=== PATIENT | male | born 1965 | race Caucasian/White ===

== ENCOUNTER 2019-05-09 05:43 | Inpatient (IN) | payer OTHER ==
[2019-05-09] MEDS ORDERED: ROCURONIUM 50 MG INJ ×2 (07:00→07:03)
[2019-05-09] MEDS ORDERED: EPHEDrine 25 MG/5 ML SYG (07:00)
[2019-05-09] MEDS ORDERED: NEOSTIGMINE 3 MG/3 ML SYRINGE ×2 (07:03→09:33)
[2019-05-09] MEDS ORDERED: PROPOFOL 20 ML (07:03)
[2019-05-09] MEDS ORDERED: GLYCOPYRROLATE 0.4 MG INJ ×3 (07:03→09:33)
[2019-05-09] MEDS ORDERED: LIDOCAINE 2% (SDV) 5 ML INJ (07:03)
[2019-05-09] MEDS ORDERED: SUCCINYLCHOLINE CHLORIDE 100 MG/5 ML SYG IV (07:03)
[2019-05-09] MEDS ORDERED: CEFAZOLIN 1 GM INJ ×2 (07:59→11:43)
[2019-05-09] MEDS ORDERED: ONDANSETRON 4 MG INJ ×2 (09:33→14:34)
[2019-05-09] MEDS ORDERED: EPHEDrine 25 MG/5 ML SYG IV (10:00)
[2019-05-09] MEDS ORDERED: FENTAnyl 50 MCG/ML VIAL IV ×2 (10:00)
[2019-05-09] MEDS ORDERED: HYDROmorphONE 1 MG/5 ML IV SYRINGE IV ×3 (10:00)
[2019-05-09] MEDS ORDERED: MIDAZOLAM 1 MG/ML 2 ML INJ IV (10:00)
[2019-05-09] MEDS ORDERED: hydrALAzine 20 MG INJ IV (10:00)
[2019-05-09] MEDS ORDERED: LABETALOL HCL 20MG INJ IV (10:00)
[2019-05-09] MEDS ORDERED: MEPERIDINE 25 MG INJ IV (10:00)
[2019-05-09] MEDS ORDERED: DIPHENHYDRAMINE 50 MG INJ IV (10:00)
[2019-05-09] MEDS ORDERED: METOCLOPRAMIDE 10 MG INJ IV (10:00)
[2019-05-09] MEDS ORDERED: FENTAnyl 50 MCG/ML VIAL ×2 (10:27→14:34)
[2019-05-09] MEDS ORDERED: ROPIVACAINE 0.5 % 30 ML VIAL (10:57)
[2019-05-09] MEDS ORDERED: POLYMYXIN/BACITRACIN 1L IRRIG (10:57)
[2019-05-09] MEDS: ROPIVACAINE 0.5 % 30 ML VIAL (10:59)
[2019-05-09] MEDS: POVIDONE IODINE 10% 28.4 GM OINT (10:59)
[2019-05-09] MEDS ORDERED: NALOXONE (0.4 MG/ML) INJ (12:39)
[2019-05-09] MEDS ORDERED: DEXTROSE 50% 50 ML SYRINGE IV ×2 (14:30)
[2019-05-09] MEDS ORDERED: GLUCOSE GEL 15 GRAM TUBE PO ×2 (14:30)
[2019-05-09] MEDS ORDERED: GLUCAGON 1 MG INJ IM (14:30)
[2019-05-09] MEDS ORDERED: GLUCOSE GEL 15 GRAM TUBE BUCCAL (14:30)
[2019-05-09] MEDS: ONDANSETRON 4 MG INJ IV (14:41)
[2019-05-09] MEDS: FENTAnyl 50 MCG/ML VIAL IV ×2 (14:41→15:48)
[2019-05-09] MEDS ORDERED: HYDROmorphONE 0.2 MG/ML PCA (15:11)
[2019-05-09] MEDS: HYDROmorphONE 0.2 MG/ML PCA IV (15:22)
[2019-05-09] MEDS: SOD CHLORIDE 0.45% 1,000 ML IV (16:18)
[2019-05-09] MEDS ORDERED: HYDROCODONE/APAP (5/325) TAB PO (16:30)
[2019-05-09] MEDS: LACTATED RINGER'S 1,000 ML IV (16:30)
[2019-05-09] MEDS: HYDROmorphONE 0.5 MG/0.5 ML SYG IV ×2 (17:46→20:47)
[2019-05-09] MEDS: INSULIN ASPART [NOVOLOG] 3 ML PEN SC ×2 (17:55→21:00)
[2019-05-09] MEDS ORDERED: DIAZEPAM 5 MG TAB PO (18:30)
[2019-05-09] MEDS: OXYCODONE/ACETAMINOPHEN (5/325) TAB PO ×2 (19:44→23:19)
[2019-05-09] MEDS: METOPROLOL 50 MG TAB PO (19:45)
[2019-05-10] MEDS: HYDROmorphONE 0.2 MG/ML PCA IV ×2 (00:06→13:21)
[2019-05-10] MEDS: SOD CHLORIDE 0.45% 1,000 ML IV ×3 (02:05→13:25)
[2019-05-10] MEDS: HYDROmorphONE 0.5 MG/0.5 ML SYG IV ×2 (02:05→05:00)
[2019-05-10] MEDS: OXYCODONE/ACETAMINOPHEN (5/325) TAB PO ×5 (03:15→21:07)
[2019-05-10 05:05] LABS: ADD MAN DIFF? NO
[2019-05-10 05:07] LABS: BASOPHILS % 0.4 % (0.0-2.0); EOSINOPHILS # 0.1 10^3/ul (0.0-0.5); EOSINOPHILS % 1.1 % (0.0-7.0); HEMATOCRIT 45.2 % (42.0-52.0); HEMOGLOBIN 14.5 g/dl (14.0-18.0); LYMPHOCYTES # 1.4 10^3/ul (0.8-2.9); LYMPHOCYTES % 17.1 % (15.0-51.0); MEAN CORPUSCULAR HEMOGLOBIN 29.2 pg (29.0-33.0); MEAN CORPUSCULAR HGB CONC 32.1 g/dl (32.0-37.0); MEAN CORPUSCULAR VOLUME 91.1 fl (82.0-101.0); MEAN PLATELET VOLUME 11.2 fl (7.4-10.4); MONOCYTE # 0.9 10^3/ul (0.3-0.9); MONOCYTES % 10.7 % (0.0-11.0); NEUTROPHIL # 5.6 10^3/ul (1.6-7.5); NEUTROPHILS % 70.1 % (39.0-77.0); PLATELET COUNT 148 10^3/UL (140-415); RED BLOOD COUNT 4.96 10^6/ul (4.70-6.10); RED CELL DISTRIBUTION WIDTH 12.8 % (11.5-14.5)
[2019-05-10 05:48] LABS: ALANINE AMINOTRANSFERASE 33 IU/L (13-69); ALBUMIN 3.6 g/dl (3.3-4.9); ALBUMIN/GLOBULIN RATIO 1.33; ALKALINE PHOSPHATASE 26 IU/L (42-121); ANION GAP 5 (5-13); ASPARTATE AMINO TRANSFERASE 33 IU/L (15-46); BILIRUBIN,INDIRECT 0.8 mg/dl (0-1.1); BILIRUBIN,TOTAL 0.8 mg/dl (0.2-1.3); BLOOD UREA NITROGEN 19 mg/dl (7-20); CALCIUM 8.4 mg/dl (8.4-10.2); CARBON DIOXIDE 34 mmol/L (21-31); CHLORIDE 97 mmol/L (97-110); CREATININE 1.35 mg/dl (0.61-1.24); Estimated GFR 55 mL/min (>60); GLUCOSE 105 mg/dl (70-220); POTASSIUM 4.2 mmol/L (3.5-5.1); SODIUM 136 mmol/L (135-144); TOTAL PROTEIN 6.3 g/dl (6.1-8.1)
[2019-05-10] MEDS: LACTATED RINGER'S 1,000 ML IV (07:00)
[2019-05-10] MEDS: INSULIN ASPART [NOVOLOG] 3 ML PEN SC ×4 (07:50→21:00)
[2019-05-10] MEDS: AMLODIPINE 10 MG TAB PO (08:25)
[2019-05-10] MEDS: LOSARTAN 50 MG TAB PO (08:25)
[2019-05-10] MEDS: METOPROLOL 50 MG TAB PO ×2 (08:26→21:08)
[2019-05-10] MEDS: DABIGATRAN 150 MG CAP PO ×2 (09:45→21:07)
[2019-05-10] MEDS: DIGOXIN 0.125 MG TAB PO (13:24)
[2019-05-11] MEDS: OXYCODONE/ACETAMINOPHEN (5/325) TAB PO (05:08)
[2019-05-11 05:27] LABS: ADD MAN DIFF? NO
[2019-05-11 05:40] LABS: BASOPHILS % 0.3 % (0.0-2.0); EOSINOPHILS # 0.2 10^3/ul (0.0-0.5); EOSINOPHILS % 2.2 % (0.0-7.0); HEMATOCRIT 44.2 % (42.0-52.0); HEMOGLOBIN 14.3 g/dl (14.0-18.0); LYMPHOCYTES # 1.3 10^3/ul (0.8-2.9); LYMPHOCYTES % 17.9 % (15.0-51.0); MEAN CORPUSCULAR HEMOGLOBIN 29.2 pg (29.0-33.0); MEAN CORPUSCULAR HGB CONC 32.4 g/dl (32.0-37.0); MEAN CORPUSCULAR VOLUME 90.2 fl (82.0-101.0); MEAN PLATELET VOLUME 11.3 fl (7.4-10.4); MONOCYTE # 0.7 10^3/ul (0.3-0.9); MONOCYTES % 9.7 % (0.0-11.0); NEUTROPHILS % 69.3 % (39.0-77.0); PLATELET COUNT 139 10^3/UL (140-415); POSITIVE DIFF @See below; RED CELL DISTRIBUTION WIDTH 12.7 % (11.5-14.5)
[2019-05-11 05:40] LABS: WHITE BLOOD COUNT 7.2 10^3/ul (4.8-10.8)
[2019-05-11] MEDS: HYDROmorphONE 0.2 MG/ML PCA IV ×2 (05:52→20:21)
[2019-05-11 06:30] LABS: ALANINE AMINOTRANSFERASE 41 IU/L (13-69); ALBUMIN 3.3 g/dl (3.3-4.9); ALBUMIN/GLOBULIN RATIO 1.17; ALKALINE PHOSPHATASE 27 IU/L (42-121); ANION GAP 6 (5-13); ASPARTATE AMINO TRANSFERASE 39 IU/L (15-46); BILIRUBIN,INDIRECT 0.6 mg/dl (0-1.1); BILIRUBIN,TOTAL 0.6 mg/dl (0.2-1.3); BLOOD UREA NITROGEN 17 mg/dl (7-20); CALCIUM 7.9 mg/dl (8.4-10.2); CARBON DIOXIDE 33 mmol/L (21-31); CHLORIDE 96 mmol/L (97-110); CREATININE 1.24 mg/dl (0.61-1.24); Estimated GFR > 60 mL/min (>60); GLUCOSE 98 mg/dl (70-220); SODIUM 135 mmol/L (135-144); TOTAL PROTEIN 6.1 g/dl (6.1-8.1)
[2019-05-11] MEDS ORDERED: RIVAROXABAN 15 MG TABLET PO ×2 (06:30)
[2019-05-11] MEDS: LACTATED RINGER'S 1,000 ML IV (06:52)
[2019-05-11] MEDS: INSULIN ASPART [NOVOLOG] 3 ML PEN SC ×4 (07:50→20:55)
[2019-05-11] MEDS: SOD CHLORIDE 0.45% 1,000 ML IV (08:20)
[2019-05-11] MEDS: DABIGATRAN 150 MG CAP PO ×2 (08:20→20:51)
[2019-05-11] MEDS: METOPROLOL 50 MG TAB PO ×2 (08:21→20:51)
[2019-05-11] MEDS: LOSARTAN 50 MG TAB PO (08:21)
[2019-05-11] MEDS: AMLODIPINE 10 MG TAB PO (08:22)
[2019-05-11] MEDS: CEFAZOLIN 2 GM/50 ML (PMX) 50 ML IVPB ×3 (09:32→22:54)
[2019-05-11] MEDS: DIGOXIN 0.125 MG TAB PO (12:33)
[2019-05-11] MEDS ORDERED: RIVAROXABAN 10 MG TABLET PO (17:55)
[2019-05-12] MEDS: SOD CHLORIDE 0.45% 1,000 ML IV (05:50)
[2019-05-12] MEDS: INSULIN ASPART [NOVOLOG] 3 ML PEN SC ×4 (07:50→20:46)
[2019-05-12] MEDS: AMLODIPINE 10 MG TAB PO (08:45)
[2019-05-12] MEDS: DABIGATRAN 150 MG CAP PO ×2 (08:46→20:01)
[2019-05-12] MEDS: METOPROLOL 50 MG TAB PO ×2 (08:46→20:01)
[2019-05-12] MEDS: LOSARTAN 50 MG TAB PO (08:46)
[2019-05-12] MEDS: OXYCODONE/ACETAMINOPHEN (5/325) TAB PO ×2 (08:47→20:02)
[2019-05-12] MEDS: DIGOXIN 0.125 MG TAB PO (12:47)
[2019-05-12] MEDS ORDERED: BISACODYL 10 MG SUPP PR (16:30)
[2019-05-12] MEDS ORDERED: RIVAROXABAN 10 MG TABLET PO (17:55)
[2019-05-12] MEDS: SENNA TAB PO (20:46)
[2019-05-13] MEDS: OXYCODONE/ACETAMINOPHEN (5/325) TAB PO ×2 (05:31→17:34)
[2019-05-13] MEDS: INSULIN ASPART [NOVOLOG] 3 ML PEN SC ×4 (07:50→20:25)
[2019-05-13] MEDS: DABIGATRAN 150 MG CAP PO ×2 (08:28→20:09)
[2019-05-13] MEDS: METOPROLOL 50 MG TAB PO ×2 (08:29→20:09)
[2019-05-13] MEDS: LOSARTAN 50 MG TAB PO (08:29)
[2019-05-13] MEDS: SENNA TAB PO ×2 (08:29→20:12)
[2019-05-13] MEDS: AMLODIPINE 10 MG TAB PO (08:29)
[2019-05-13] MEDS: DIGOXIN 0.125 MG TAB PO (14:31)
[2019-05-13] MEDS: MAGNESIUM HYDROXIDE 30ML CUP PO (15:18)
[2019-05-13] MEDS: POLYETHYLENE GLYCOL 17 GM PACKET PO (16:29)
[2019-05-14] MEDS: INSULIN ASPART [NOVOLOG] 3 ML PEN SC ×4 (07:50→21:00)
[2019-05-14] MEDS: SENNA TAB PO ×2 (08:40→21:15)
[2019-05-14] MEDS: METOPROLOL 50 MG TAB PO ×2 (08:40→21:15)
[2019-05-14] MEDS: LOSARTAN 50 MG TAB PO (08:41)
[2019-05-14] MEDS: DABIGATRAN 150 MG CAP PO ×2 (08:41→21:15)
[2019-05-14] MEDS: FUROSEMIDE 40 MG TAB PO ×2 (08:41→16:16)
[2019-05-14] MEDS: AMLODIPINE 10 MG TAB PO (08:41)
[2019-05-14 10:29] LABS: ADD MAN DIFF? NO
[2019-05-14 10:37] LABS: WHITE BLOOD COUNT 6.6 10^3/ul (4.8-10.8)
[2019-05-14 10:37] LABS: BASOPHILS % 0.5 % (0.0-2.0); EOSINOPHILS # 0.2 10^3/ul (0.0-0.5); EOSINOPHILS % 3.2 % (0.0-7.0); HEMATOCRIT 49.2 % (42.0-52.0); HEMOGLOBIN 15.9 g/dl (14.0-18.0); LYMPHOCYTES # 0.8 10^3/ul (0.8-2.9); LYMPHOCYTES % 12.6 % (15.0-51.0); MEAN CORPUSCULAR HEMOGLOBIN 28.9 pg (29.0-33.0); MEAN CORPUSCULAR HGB CONC 32.3 g/dl (32.0-37.0); MEAN CORPUSCULAR VOLUME 89.3 fl (82.0-101.0); MEAN PLATELET VOLUME 10.7 fl (7.4-10.4); MONOCYTE # 0.5 10^3/ul (0.3-0.9); MONOCYTES % 7.6 % (0.0-11.0); NEUTROPHILS % 75.6 % (39.0-77.0); PLATELET COUNT 192 10^3/UL (140-415); RED BLOOD COUNT 5.51 10^6/ul (4.70-6.10); RED CELL DISTRIBUTION WIDTH 12.3 % (11.5-14.5)
[2019-05-14 10:56] LABS: ALANINE AMINOTRANSFERASE 62 IU/L (13-69); ALBUMIN 3.7 g/dl (3.3-4.9); ALBUMIN/GLOBULIN RATIO 1.23; ALKALINE PHOSPHATASE 50 IU/L (42-121); ANION GAP 10 (5-13); ASPARTATE AMINO TRANSFERASE 50 IU/L (15-46); BILIRUBIN,INDIRECT 0.7 mg/dl (0-1.1); BILIRUBIN,TOTAL 0.7 mg/dl (0.2-1.3); BLOOD UREA NITROGEN 18 mg/dl (7-20); CALCIUM 9.1 mg/dl (8.4-10.2); CARBON DIOXIDE 27 mmol/L (21-31); CHLORIDE 102 mmol/L (97-110); CREATININE 1.05 mg/dl (0.61-1.24); Estimated GFR > 60 mL/min (>60); GLUCOSE 161 mg/dl (70-220); MAGNESIUM 2.2 mg/dl (1.7-2.5); POTASSIUM 4.4 mmol/L (3.5-5.1); SODIUM 139 mmol/L (135-144); TOTAL PROTEIN 6.7 g/dl (6.1-8.1)
[2019-05-14 11:04] LABS: B-TYPE NATRIURETIC PEPTIDE 1000 PG/ML (0-125)
[2019-05-14 11:05] LABS: DIGOXIN < 0.4 ng/ml (1.0-2.0)
[2019-05-14] MEDS: DIGOXIN 0.125 MG TAB PO (13:49)
[2019-05-14] MEDS ORDERED: FUROSEMIDE 20 MG INJ IV (15:00)
[2019-05-14] MEDS: DIGOXIN 0.25 MG TAB PO (16:15)
[2019-05-15] MEDS: OXYCODONE/ACETAMINOPHEN (5/325) TAB PO ×2 (01:36→20:59)
[2019-05-15] MEDS: INSULIN ASPART [NOVOLOG] 3 ML PEN SC ×4 (07:50→20:26)
[2019-05-15] MEDS: SENNA TAB PO ×3 (09:00→20:22)
[2019-05-15] MEDS: DABIGATRAN 150 MG CAP PO ×2 (10:16→20:21)
[2019-05-15] MEDS: METOPROLOL 50 MG TAB PO ×2 (10:17→20:22)
[2019-05-15] MEDS: FUROSEMIDE 40 MG TAB PO ×2 (10:18→17:35)
[2019-05-15] MEDS: AMLODIPINE 10 MG TAB PO (10:18)
[2019-05-15] MEDS: LOSARTAN 50 MG TAB PO (10:18)
[2019-05-15] MEDS: DIGOXIN 0.125 MG TAB PO (12:44)
[2019-05-15 15:27] LABS: WHITE BLOOD COUNT 7.3 10^3/ul (4.8-10.8)
[2019-05-15 15:27] LABS: ADD MAN DIFF? NO; BASOPHILS % 0.6 % (0.0-2.0); EOSINOPHILS # 0.3 10^3/ul (0.0-0.5); EOSINOPHILS % 4.1 % (0.0-7.0); HEMATOCRIT 52.2 % (42.0-52.0); HEMOGLOBIN 17.3 g/dl (14.0-18.0); LYMPHOCYTES # 1.2 10^3/ul (0.8-2.9); LYMPHOCYTES % 16.3 % (15.0-51.0); MEAN CORPUSCULAR HEMOGLOBIN 28.7 pg (29.0-33.0); MEAN CORPUSCULAR HGB CONC 33.1 g/dl (32.0-37.0); MEAN CORPUSCULAR VOLUME 86.7 fl (82.0-101.0); MONOCYTE # 0.6 10^3/ul (0.3-0.9); NEUTROPHIL # 5.1 10^3/ul (1.6-7.5); NEUTROPHILS % 70.4 % (39.0-77.0); PLATELET COUNT 217 10^3/UL (140-415); RED BLOOD COUNT 6.02 10^6/ul (4.70-6.10); RED CELL DISTRIBUTION WIDTH 12.4 % (11.5-14.5)
[2019-05-15 16:00] LABS: ANION GAP 10 (5-13); BLOOD UREA NITROGEN 24 mg/dl (7-20); CALCIUM 9.2 mg/dl (8.4-10.2); CARBON DIOXIDE 29 mmol/L (21-31); CHLORIDE 100 mmol/L (97-110); CREATININE 1.14 mg/dl (0.61-1.24); Estimated GFR > 60 mL/min (>60); GLUCOSE 114 mg/dl (70-220); MAGNESIUM 2.1 mg/dl (1.7-2.5); PHOSPHORUS 4.4 mg/dl (2.5-4.9); POTASSIUM 4.1 mmol/L (3.5-5.1); SODIUM 139 mmol/L (135-144)
[2019-05-15 16:10] LABS: B-TYPE NATRIURETIC PEPTIDE 482 PG/ML (0-125)
[2019-05-16] MEDS: INSULIN ASPART [NOVOLOG] 3 ML PEN SC ×2 (07:50→11:40)
[2019-05-16] MEDS: metFORMIN 500 MG TAB NGT (08:28)
[2019-05-16] MEDS: LOSARTAN 50 MG TAB PO (08:29)
[2019-05-16] MEDS: AMLODIPINE 10 MG TAB PO (08:30)
[2019-05-16] MEDS: METOPROLOL 50 MG TAB PO (08:31)
[2019-05-16] MEDS: DABIGATRAN 150 MG CAP PO (08:31)
[2019-05-16] MEDS: FUROSEMIDE 40 MG TAB PO (08:31)
[2019-05-16] MEDS: OXYCODONE/ACETAMINOPHEN (5/325) TAB PO ×2 (08:32→11:31)
[2019-05-16] MEDS: SENNA TAB PO (08:32)
[2019-05-16] MEDS: DIGOXIN 0.125 MG TAB PO (12:27)
== END 2019-05-16 13:03 | DRG 501 ==
LOC: SDS 05:43 → MS1 15:46 → SDS 14:01 → MS1 14:01
PROVIDERS: Orthopaedic Surgery
PROC: 0KXV0ZZ Transfer Right Foot Muscle, Open Approach (ICD-10-PCS; principal; 2019-05-09 07:00)
PROC: 0QSL04Z Reposition Right Tarsal with Internal Fixation Device, Open Approach (ICD-10-PCS; 2019-05-09 07:00)
PROC: 0MQS0ZZ Repair Right Foot Bursa and Ligament, Open Approach (ICD-10-PCS; 2019-05-09 07:00)
DX: S96.811A Strain of other specified muscles and tendons at ankle and foot level, right foot, initial encounter (principal); I42.9 Cardiomyopathy, unspecified; N17.9 Acute kidney failure, unspecified; Z68.41 Body mass index [BMI] 40.0-44.9, adult; M21.071 Valgus deformity, not elsewhere classified, right ankle; I10 Essential (primary) hypertension; G47.33 Obstructive sleep apnea (adult) (pediatric); E66.01 Morbid (severe) obesity due to excess calories; W10.9XXA Fall (on) (from) unspecified stairs and steps, initial encounter; I48.2 Chronic atrial fibrillation; E11.9 Type 2 diabetes mellitus without complications; R09.89 Other specified symptoms and signs involving the circulatory and respiratory systems
CPT/HCPCS: 71045; 73610-RT; 80048; 80053; 80162; 82962; 83735; 83880; 84100; 85025; 93005; 94660; 97110; 97116; 97163; 97166; 97530; 97535